=== PATIENT | male | born 1955 | race Two or more races ===

== ENCOUNTER 2022-12-02 10:27 | Emergency (ER) | payer OTHER, MEDICAID ==
[~2022-12-02] VITALS: Ht 170.2 cm; Wt 79.5 kg
[2022-12-02 11:03] VITALS: BP 112/72; PULSE 77; RESP 16; TEMP 97.8; O2SAT 96
[2022-12-02] MEDS ORDERED: CEPH500C PO (13:01)
[2022-12-02] MEDS ORDERED: ACET-1080 PO (13:01)
== END 2022-12-02 13:05 | disposition home or self-care (01) ==
LOC: ER 10:27
DX: H61.21 Impacted cerumen, right ear (principal); H60.91 Unspecified otitis externa, right ear; R51.9 Headache, unspecified; I10 Essential (primary) hypertension; F41.9 Anxiety disorder, unspecified; F17.210 Nicotine dependence, cigarettes, uncomplicated; Z79.1 Long term (current) use of non-steroidal anti-inflammatories (NSAID); Z79.899 Other long term (current) drug therapy
CPT/HCPCS: 69209; 70450

== ENCOUNTER → 2023-04-27 | Outpatient (CLI) | payer OTHER ==
[~2023-04-27] MED LIST: ACET-1080 PO; CEPH500C PO
[2023-04-27 15:20] LABS: Basophils # (auto) 0.1 10 ^3/uL (0-0.2); Basophils % (auto) 1.4 % (0.0-2.0); Eosinophils # (auto) 0.2 10 ^3/uL (0-0.8); Eosinophils % (auto) 3.8 % (0.0-7.0); Hematocrit 47.7 % (41.0-53.0); Hemoglobin 15.9 g/dL (13.5-17.5); Lymphocytes % (auto) 20.5 % (10.0-50.0); Mean Corpuscular Hemoglobin 30.2 pg (28.0-32.0); Mean Corpuscular Hgb Conc. 33.4 g/dL (32.0-36.0); Mean Corpuscular Volume 90.4 fL (80.0-100.0); Monocytes # (auto) 0.5 10 ^3/uL (0-1.3); Monocytes % (auto) 10.3 % (0.0-12.0); Nucleated Red Blood Cells % 0.1 %; Red Blood Cells 5.27 10^6/uL (4.5-5.90); Red Cell Distribution Width 13.7 % (11.8-14.3); White Blood Cell 4.7 10^3/uL (4.4-10.8)
[2023-04-27 16:12] LABS: Alanine Aminotransferase 17 U/L (7-40); Albumin 4.5 g/dL (3.2-4.8); Alkaline Phosphatase 103 U/L (46-116); Anion Gap 4 (5-15); Aspartate Aminotransferase 20 U/L (13-40); BUN/Creatinine Ratio 5.7 (10.0-20.0); Bilirubin, Total 0.7 mg/dL (0.2-1.0); Blood Urea Nitrogen 6 mg/dL (9-23); Calcium 9.7 mg/dL (8.5-10.1); Carbon Dioxide 30 mmol/L (20-30); Chloride 106 mmol/L (98-107); Cholesterol 181 mg/dL (< 200); Creatine Kinase IFCC 77 U/L (46-171); Glucose 94 mg/dL (74-106); HDL Cholesterol 63 mg/dL (40-59); LDL Cholesterol 109 mg/dL (< 100); Potassium 4.3 mmol/L (3.5-5.1); Sodium 140 mmol/L (136-145); Triglycerides 92 mg/dL (< 150)
== END | disposition home or self-care (01) ==
LOC: LAB 15:01
PROVIDERS: ATTEND Internal Medicine
DX: C61 Malignant neoplasm of prostate (principal); E78.5 Hyperlipidemia, unspecified; E55.9 Vitamin D deficiency, unspecified; R79.9 Abnormal finding of blood chemistry, unspecified
CPT/HCPCS: 36415; 80053; 80061; 82306; 82550; 83036; 83615; 84153; 85025

== ENCOUNTER → 2023-06-23 | Outpatient (CLI) | payer OTHER ==
[2023-06-23 11:20] LABS: Calcium 9.9 mg/dL (8.5-10.1); Chloride 105 mmol/L (98-107); Potassium 4.2 mmol/L (3.5-5.1); Sodium 139 mmol/L (136-145)
[2023-06-23 11:21] LABS: Anion Gap 5 (5-15); Carbon Dioxide 29 mmol/L (20-30)
[2023-06-23 11:26] LABS: Glucose 98 mg/dL (74-106)
[2023-06-23 11:27] LABS: Blood Urea Nitrogen 9 mg/dL (9-23)
== END | disposition home or self-care (01) ==
LOC: LAB 10:21
PROVIDERS: ATTEND Internal Medicine
DX: E11.69 Type 2 diabetes mellitus with other specified complication (principal)
CPT/HCPCS: 36415; 80048; 83036

== ENCOUNTER → 2023-09-05 | Outpatient (CLI) | payer MEDICAID | END | disposition home or self-care (01) | LOC: LAB 15:16 | PROVIDERS: ATTEND Internal Medicine | DX: C61 Malignant neoplasm of prostate (principal) | CPT/HCPCS: 84153 ==

== ENCOUNTER → 2023-11-10 | Outpatient (CLI) | payer MEDICAID | END | disposition home or self-care (01) | LOC: LAB 11:12 | PROVIDERS: ATTEND Internal Medicine | DX: R14.1 Gas pain (principal) | CPT/HCPCS: 83013 ==

== ENCOUNTER → 2023-12-12 | Outpatient (CLI) | payer MEDICAID ==
[2023-12-13 08:06] LABS: PSA Free <0.02 ng/mL; Prostate Specific Antigen <0.1 ng/mL (0.0-4.0)
== END | disposition home or self-care (01) ==
LOC: LAB 11:30
PROVIDERS: ATTEND Internal Medicine
DX: Z85.46 Personal history of malignant neoplasm of prostate (principal)
CPT/HCPCS: 84154

== ENCOUNTER 2024-01-02 07:38 | Day surgery (SDC) | payer MEDICAID ==
[2023-12-29 12:57] LABS: Basophils # (auto) 0 10 ^3/uL (0-0.2); Basophils % (auto) 0.4 % (0.0-2.0); Eosinophils # (auto) 0.1 10 ^3/uL (0-0.8); Eosinophils % (auto) 1.9 % (0.0-7.0); Hematocrit 46.1 % (41.0-53.0); Lymphocytes # (auto) 1.2 10 ^3/uL (0.4-5.4); Lymphocytes % (auto) 17.6 % (10.0-50.0); Mean Corpuscular Hemoglobin 31.4 pg (28.0-32.0); Mean Corpuscular Hgb Conc. 34.8 g/dL (32.0-36.0); Mean Corpuscular Volume 90.2 fL (80.0-100.0); Monocytes # (auto) 0.6 10 ^3/uL (0-1.3); Monocytes % (auto) 8.8 % (0.0-12.0); Neutrophils # (auto) 4.8 10 ^3/uL (1.6-8.6); Neutrophils % (auto) 71.3 % (37.0-80.0); Nucleated Red Blood Cells % 0.2 %; Platelet Count (auto) 219 10^3/uL (140-450); Red Blood Cells 5.11 10^6/uL (4.5-5.90); Red Cell Distribution Width 13.7 % (11.8-14.3); White Blood Cell 6.7 10^3/uL (4.4-10.8)
[2023-12-29 13:17] LABS: INR 0.97 (0.9-1.15); Partial Thromboplastin Time 30.1 SEC (24.5-34.5); Prothrombin Time 10.3 sec (9.3-11.8)
[2023-12-29 14:07] LABS: Alanine Aminotransferase 21 U/L (7-40); Albumin 4.5 g/dL (3.2-4.8); Alkaline Phosphatase 114 U/L (46-116); Anion Gap 7 (5-15); Aspartate Aminotransferase 17 U/L (13-40); BUN/Creatinine Ratio 7.3 (10.0-20.0); Bilirubin, Total 0.7 mg/dL (0.2-1.0); Blood Urea Nitrogen 8 mg/dL (9-23); Calcium 9.9 mg/dL (8.7-10.4); Carbon Dioxide 29 mmol/L (20-31); Chloride 103 mmol/L (98-107); Glucose 101 mg/dL (74-106); Potassium 4.3 mmol/L (3.5-5.1); Sodium 139 mmol/L (136-145)
[2023-12-29 14:08] LABS: Total Protein 7.5 g/dL (5.7-8.2)
[~2024-01-02] VITALS: Ht 170.2 cm; Wt 79.4 kg
[~2024-01-02 07:38] MED LIST changes: -ACET-1080 PO; -CEPH500C PO; +DICY10CA PO; +DOXY-286 PO; +HYDR-4795 PO; +LAMO100T44 PO; +LISI20TA60 PO; +PANT40TA2 PO; +SIMV20TA20 PO
[2024-01-02] MEDS ORDERED: SODIUM CHLORIDE LOCK 10 ML ONE (08:21)
[2024-01-02] MEDS ORDERED: FLUMAZENIL 0.1 MG/ML INJ 10ML MDV IV ONE (08:22)
[2024-01-02] MEDS ORDERED: NALOXONE HCL 0.4 MG/ML VIAL ONE (08:22)
[2024-01-02 09:33] VITALS: PULSE 69; RESP 16; O2SAT 99
[2024-01-02] MEDS: fentaNYL CITRATE 100 MCG/2 ML VL ONE ×2 (09:38→09:50)
[2024-01-02] MEDS: MIDAZOLAM HCL 5 MG/ML-1ML VIAL ONE (09:38)
[2024-01-02] MEDS: diphenhdrAMINE HCL 50 MG/1 ML VL ONE (09:40)
[2024-01-02 10:16] VITALS: PULSE 64; RESP 14; TEMP 98.8; O2SAT 98
--- NOTE | 2024-01-02 10:23 | DVHOP2 ---
Operative Report DATE OF PROCEDURE: 01/02/24 INDICATIONS FOR THE PROCEDURE: Rectal Bleeding abdominal pain history of prostate cancer PROCEDURE PERFORMED: Colonoscopy and biopsy POSTOPERATIVE DIAGNOSIS: Mild nonspecific sigmoiditis biopsies taken Mild proctitis possibly from prostate CA and possible radiation, biopsies taken Scattered diverticulae Internal hemorrhoids INFORMED CONSENT: The risks and benefits and alternatives were explained to the patient and informed consent was obtained. PROCEDURE IN DETAIL: The patient was kept NPO after midnight. Patient was given IV sedation with Ve rsed 5 mg Benadryl 50 mg and fentanyl 125 mcg Olympus colonoscope was passed through the rectum all the way up to cecum and the terminal ileum. The terminal ileum was normal Cecum, ascending colon, hepatic flexure, transverse colon, splenic flexure, descending colon, and sigmoid colon were all visualized and the findings were as follows: Findings: This some scattered stool particles throughout the colon which were cleaned out as much as possible and grossly no lesions seen The descending colon and the sigmoid colon was slightly tortuous as well as the hepatic flexure There were few scattered diverticula seen without gross bleeding in the sigmoid and descending colon In the distal sigmoid there were erythematous streaks suggestive of mild nonspecific sigmoiditis biopsies taken no active bleeding seen In the rectum mid and distal rectum there were erythematous streaks with erosions suggestive of proctitis with dilated blood vessels possibility of radiation proctitis probably from prostate cancer therapy can not be ruled out no active bleeding seen Multiple biopsies taken Internal hemorrhoids without bleeding ENDOSCOPIC IMPRESSION: Mild nonspecific sigmoiditis biopsies taken Mild proctitis possibly from prostate CA and possible radiation, biopsies taken Scattered diverticulae Internal hemorrhoids SUGGESTIONS: await biopsy results treat with Rowasa suppository and see the response With warm regards, DR Neely cpopy to HELEN RODGERS MD Jan 02, 2024 10:23
[2024-01-02 10:45] VITALS: BP 132/89; PULSE 65; RESP 14; O2SAT 98
== END 2024-01-02 10:53 | disposition home or self-care (01) ==
LOC: GI 07:38
PROVIDERS: ATTEND Internal Medicine Gastroenterology
DX: K62.5 Hemorrhage of anus and rectum (principal); K52.9 Noninfective gastroenteritis and colitis, unspecified; K62.89 Other specified diseases of anus and rectum; K64.8 Other hemorrhoids; K63.89 Other specified diseases of intestine; K57.30 Diverticulosis of large intestine without perforation or abscess without bleeding; K21.9 Gastro-esophageal reflux disease without esophagitis; M19.90 Unspecified osteoarthritis, unspecified site; Z85.46 Personal history of malignant neoplasm of prostate; Z98.890 Other specified postprocedural states
CPT/HCPCS: 36415; 45380; 80053; 85025; 85610; 85730; 88305; J1200; J2250; J3010; J7030; 99152; 99153

== ENCOUNTER 2024-07-30 11:33 | Outpatient (CLI) | payer MEDICAID ==
[2024-07-30 12:17] LABS: Creatinine, Urine 198.76 mg/dL (30.0-125.0)
[2024-07-30 12:19] LABS: Alanine Aminotransferase 15 U/L (7-40); Albumin 4.5 g/dL (3.2-4.8); Alkaline Phosphatase 104 U/L (46-116); Anion Gap 8 (5-15); Aspartate Aminotransferase 20 U/L (<34); Blood Urea Nitrogen 12 mg/dL (9-23); Carbon Dioxide 28 mmol/L (20-31); Glucose 98 mg/dL (74-106); LDL Cholesterol 86 mg/dL (< 100); Microalb/Creat Ratio, Urine < 3.0; Potassium 3.8 mmol/L (3.5-5.1); Sodium 144 mmol/L (136-145); Total Protein 7.1 g/dL (5.7-8.2); Triglycerides 70 mg/dL (< 150)
[2024-07-30 12:20] LABS: Bilirubin, Total 0.6 mg/dL (0.2-1.0); Calcium 10.5 mg/dL (8.7-10.4); Chloride 108 mmol/L (98-107); Cholesterol 151 mg/dL (< 200); HDL Cholesterol 54 mg/dL (40-59)
[2024-07-31 08:07] LABS: PSA Free <0.02 ng/mL; Prostate Specific Antigen 0.2 ng/mL (0.0-4.0)
== END 2024-07-30 17:00 | disposition home or self-care (01) ==
LOC: LAB 11:33
PROVIDERS: ATTEND Internal Medicine
DX: E78.5 Hyperlipidemia, unspecified (principal); E55.9 Vitamin D deficiency, unspecified; R73.9 Hyperglycemia, unspecified; Z85.46 Personal history of malignant neoplasm of prostate
CPT/HCPCS: 36415; 80053; 80061; 82043; 82306; 82570; 83036; 84154

== ENCOUNTER 2024-10-16 08:28 | Outpatient (CLI) | payer MEDICAID | END 2024-10-16 17:00 | disposition home or self-care (01) | LOC: LAB 08:28 | PROVIDERS: ATTEND Internal Medicine | DX: C61 Malignant neoplasm of prostate (principal) | CPT/HCPCS: 84153 ==

== ENCOUNTER 2024-12-11 14:52 | Outpatient (CLI) | payer MEDICAID ==
[2024-12-11 15:52] LABS: Alanine Aminotransferase 14 U/L (7-40); Albumin 4.5 g/dL (3.2-4.8); Alkaline Phosphatase 102 U/L (46-116); Anion Gap 10 (5-15); BUN/Creatinine Ratio 8.4 (10.0-20.0); Blood Urea Nitrogen 9 mg/dL (9-23); Calcium 9.6 mg/dL (8.7-10.4); Carbon Dioxide 25 mmol/L (20-31); Chloride 106 mmol/L (98-107); Glucose 98 mg/dL (74-106); Potassium 3.7 mmol/L (3.5-5.1); Sodium 141 mmol/L (136-145); Total Protein 7.6 g/dL (5.7-8.2)
[2024-12-11 15:53] LABS: Bilirubin, Total 0.5 mg/dL (0.2-1.0)
[2024-12-11 16:16] LABS: Microalb/Creat Ratio, Urine < 3.0
[2024-12-11 18:00] LABS: Triglycerides 99 mg/dL (< 150)
[2024-12-11 18:02] LABS: Cholesterol 160 mg/dL (< 200); HDL Cholesterol 59 mg/dL (40-59)
== END 2024-12-11 17:00 | disposition home or self-care (01) ==
LOC: LAB 14:52
PROVIDERS: ATTEND Urology
DX: C61 Malignant neoplasm of prostate (principal); E78.5 Hyperlipidemia, unspecified; E55.9 Vitamin D deficiency, unspecified; R73.9 Hyperglycemia, unspecified; Z85.46 Personal history of malignant neoplasm of prostate
CPT/HCPCS: 36415; 80053; 80061; 82043; 82306; 82570; 84153; 84402; 84403